=== PATIENT | female | born 1950 | race Caucasian/White ===

== ENCOUNTER → 2016-08-14 | Outpatient (CLI) | payer MEDICARE, BC ==
[~2016-08-14] MED LIST: HYDROCHLOROTH12.5 M1 PO; IBUPROFEN 200200 MG PO; LISINOPRIL10 MG PO; LOPRESSOR 225 MG/TAB PO; NAPROXEN CR500 MG PO; RITE AID ASPIRI81 M1 PO; ZOVIRAX400 MG PO; ZOVIRAX5% TP
[2016-08-14 11:09] VITALS: BP 157/74
== END ==
LOC: AMSURD 10:42
DX: I10 Essential (primary) hypertension (principal); R07.9 Chest pain, unspecified; Z79.899 Other long term (current) drug therapy

== ENCOUNTER → 2017-01-11 | Outpatient (CLI) | payer MEDICARE, BC ==
[2016-08-14 11:09] VITALS: BP 157/74
== END ==
LOC: RAD 10:01
DX: M79.671 Pain in right foot (principal); M19.071 Primary osteoarthritis, right ankle and foot; M77.31 Calcaneal spur, right foot

== ENCOUNTER → 2017-03-14 | Outpatient (CLI) | payer MEDICARE, BC ==
[2016-08-14 11:09] VITALS: BP 157/74
== END ==
LOC: LAB 11:21
DX: I10 Essential (primary) hypertension (principal); E11.9 Type 2 diabetes mellitus without complications; K90.89 Other intestinal malabsorption; I25.10 Atherosclerotic heart disease of native coronary artery without angina pectoris; Z12.11 Encounter for screening for malignant neoplasm of colon

== ENCOUNTER → 2018-04-01 | Outpatient (CLI) | payer MEDICARE, BC ==
[2016-08-14 11:09] VITALS: BP 157/74
[2018-04-01 10:27] LABS: HEMATOCRIT 43.2 % (37.0-47.0); HEMOGLOBIN 14.8 g/dL (12.5-16.0); MEAN CELL VOLUME 81 fl (78-100); MEAN CORPUSCULAR HEMOGLOBIN 28 pg (27-31); MEAN CORPUSCULAR HGB CONC 34 g/dL (33-37); MEAN PLATELET VOLUME 9.2 fl (7.4-10.4); RED BLOOD COUNT 5.33 M/mm3 (4.10-5.30); RED CELL DISTRIBUTION WIDTH 16.7 % (11.5-14.5); WHITE BLOOD COUNT 9.2 K/mm3 (4.8-10.8)
[2018-04-01 10:28] LABS: ALBUMIN 4.1 g/dL (3.5-5.0); CALCIUM 9.2 mg/dL (8.4-10.2); POTASSIUM 4.1 mmol/L (3.6-5.0); TOTAL BILIRUBIN 1.6 mg/dL (0.2-1.3); TOTAL PROTEIN 7.6 g/dL (6.3-8.2)
[2018-04-01 10:58] LABS: URINE APPEARANCE CLEAR; URINE BILIRUBIN NEGATIVE (NEGATIVE); URINE BLOOD NEGATIVE (NEGATIVE); URINE COLOR YELLOW; URINE GLUCOSE NEGATIVE (NEGATIVE); URINE KETONE NEGATIVE (NEGATIVE); URINE LEUKOCYTE ESTERASE TRACE (NEGATIVE); URINE NITRATE NEGATIVE (NEGATIVE); URINE PROTEIN(semi-quant) TRACE mg/dL (NEGATIVE); URINE UROBILINOGEN NORMAL (NORMAL)
[2018-04-01 11:34] LABS: BAND 1 % (0-10); LYMPHOCYTE 25 % (20-51); MONOCYTE 6 % (3-10); NEUTROPHILS 63 % (42-75); PLATELET COUNT 1051 K/mm3 (130-400)
[2018-04-01 11:35] LABS: ERYTHROCYTE SEDIMENTATION RATE 2 mm/hr (0-30)
== END ==
LOC: LAB 09:52
PROVIDERS: Internal Medicine
DX: E11.9 Type 2 diabetes mellitus without complications (principal); I25.10 Atherosclerotic heart disease of native coronary artery without angina pectoris; I10 Essential (primary) hypertension; K90.9 Intestinal malabsorption, unspecified

== ENCOUNTER → 2018-12-12 | Outpatient (CLI) | payer MEDICARE, BC ==
[2016-08-14 11:09] VITALS: BP 157/74
== END ==
LOC: LAB 08:08
PROVIDERS: Internal Medicine Cardiovascular Disease
DX: E78.00 Pure hypercholesterolemia, unspecified (principal)

== ENCOUNTER → 2019-04-06 | Outpatient (CLI) | payer MEDICARE, BC ==
[2016-08-14 11:09] VITALS: BP 157/74
== END ==
LOC: VAS 10:12
DX: Z13.89 Encounter for screening for other disorder (principal); M79.89 Other specified soft tissue disorders; I87.2 Venous insufficiency (chronic) (peripheral)

== ENCOUNTER → 2019-04-27 | Outpatient (CLI) | payer MEDICARE, BC ==
[2016-08-14 11:09] VITALS: BP 157/74
[2019-04-27 10:46] LABS: HEMATOCRIT 41.2 % (37.0-47.0); HEMOGLOBIN 13.8 g/dL (12.5-16.0); MEAN CELL VOLUME 81 fl (78-100); MEAN CORPUSCULAR HEMOGLOBIN 27 pg (27-31); MEAN CORPUSCULAR HGB CONC 34 g/dL (33-37); MEAN PLATELET VOLUME 8.8 fl (7.4-10.4); RED BLOOD COUNT 5.12 M/mm3 (4.10-5.30); WHITE BLOOD COUNT 9.3 K/mm3 (4.8-10.8)
[2019-04-27 10:55] LABS: ALBUMIN 4.1 g/dL (3.4-4.8); POTASSIUM 4.2 mmol/L (3.5-5.1)
[2019-04-27 10:56] LABS: CALCIUM 9.4 mg/dL (8.3-10.5)
[2019-04-27 10:58] LABS: TOTAL PROTEIN 7.6 g/dL (6.2-8.1)
[2019-04-27 10:59] LABS: TOTAL BILIRUBIN 1.4 mg/dL (0.2-1.2)
[2019-04-27 11:05] LABS: MAGNESIUM 2.04 mg/dL (1.60-2.60)
[2019-04-27 11:25] LABS: LYMPHOCYTE 27 % (20-51); MONOCYTE 6 % (3-10); NEUTROPHILS 59 % (42-75); PLATELET COUNT 1233 K/mm3 (130-400); RED CELL DISTRIBUTION WIDTH 18.9 % (11.5-14.5)
[2019-04-27 11:26] LABS: OVALOCYTES 1+
[2019-04-27 11:49] LABS: PH-URINE 5.5 (5.0 - 8.0); URINE APPEARANCE HAZY; URINE BILIRUBIN NEGATIVE (NEGATIVE); URINE BLOOD NEGATIVE (NEGATIVE); URINE COLOR YELLOW; URINE GLUCOSE NEGATIVE (NEGATIVE); URINE KETONE NEGATIVE (NEGATIVE); URINE LEUKOCYTE ESTERASE 1+ (NEGATIVE); URINE MUCUS PRESENT (NOT PRESENT); URINE NITRATE NEGATIVE (NEGATIVE); URINE PROTEIN(semi-quant) TRACE mg/dL (NEGATIVE); URINE UROBILINOGEN NORMAL (NORMAL)
[2019-04-27 12:03] LABS: ERYTHROCYTE SEDIMENTATION RATE 4 mm/hr (0-30)
== END ==
LOC: LAB 10:31
PROVIDERS: Internal Medicine
DX: M16.12 Unilateral primary osteoarthritis, left hip (principal); E11.9 Type 2 diabetes mellitus without complications; I10 Essential (primary) hypertension; I25.10 Atherosclerotic heart disease of native coronary artery without angina pectoris; K90.9 Intestinal malabsorption, unspecified

== ENCOUNTER 2019-09-25 14:59 | Emergency (ER) | payer MEDICARE, BC ==
[~2019-09-25] VITALS: Ht 167.6 cm; Wt 75.9 kg
[2019-09-25 16:27] LABS: HEMATOCRIT 37.4 % (37.0-47.0); HEMOGLOBIN 12.9 g/dL (12.5-16.0); MEAN CELL VOLUME 75 fl (78-100); MEAN CORPUSCULAR HEMOGLOBIN 26 pg (27-31); MEAN CORPUSCULAR HGB CONC 35 g/dL (33-37); MEAN PLATELET VOLUME 9.5 fl (7.4-10.4); RED BLOOD COUNT 4.98 M/mm3 (4.10-5.30); WHITE BLOOD COUNT 6.5 K/mm3 (4.8-10.8)
[2019-09-25] MEDS ORDERED: ZOFRAN4 M2 PO (16:29)
[2019-09-25] MEDS ORDERED: NITROGLYCERIN0.4 M1 SL (16:32)
[2019-09-25] MEDS ORDERED: METOPROLOL SUCC25 M1 PO (16:33)
[2019-09-25 16:47] LABS: ALBUMIN 3.5 g/dL (3.4-4.8)
[2019-09-25 16:50] LABS: TOTAL PROTEIN 6.2 g/dL (6.2-8.1)
[2019-09-25 16:52] LABS: TOTAL BILIRUBIN 1.4 mg/dL (0.2-1.2)
[2019-09-25 16:55] LABS: LYMPHOCYTE 16 % (20-51); MONOCYTE 6 % (3-10); NEUTROPHILS 78 % (42-75); PLATELET COUNT 705 K/mm3 (130-400); POLYCHROMASIA 1+; RED CELL DISTRIBUTION WIDTH 18.4 % (11.5-14.5)
[2019-09-25 16:56] LABS: MICROCYTOSIS 1+
[2019-09-25 17:04] LABS: POTASSIUM 2.5 mmol/L (3.5-5.1)
[2019-09-25 17:45] LABS: PH-URINE 5.5 (5.0 - 8.0); URINE APPEARANCE CLOUDY; URINE BILIRUBIN NEGATIVE (NEGATIVE); URINE BLOOD TRACE (NEGATIVE); URINE COLOR YELLOW; URINE GLUCOSE NEGATIVE (NEGATIVE); URINE KETONE NEGATIVE (NEGATIVE); URINE LEUKOCYTE ESTERASE 2+ (NEGATIVE); URINE NITRATE POSITIVE (NEGATIVE); URINE PROTEIN(semi-quant) TRACE mg/dL (NEGATIVE); URINE UROBILINOGEN NORMAL (NORMAL)
[2019-09-25 17:46] LABS: URINE WBC >50 /hpf (0-3)
[2019-09-25 19:02] VITALS: BP 161/75
== END 2019-09-25 20:28 | disposition short-term general hospital (02) ==
LOC: ED 14:59
PROVIDERS: Nurse Practitioner
DX: E87.6 Hypokalemia (principal); E87.1 Hypo-osmolality and hyponatremia; R05 Cough; R06.02 Shortness of breath; E11.9 Type 2 diabetes mellitus without complications; I10 Essential (primary) hypertension; E78.5 Hyperlipidemia, unspecified; F41.9 Anxiety disorder, unspecified; K21.9 Gastro-esophageal reflux disease without esophagitis; Z79.82 Long term (current) use of aspirin; Z90.49 Acquired absence of other specified parts of digestive tract; Z90.710 Acquired absence of both cervix and uterus
CPT/HCPCS: J2405; J7030

== ENCOUNTER → 2019-10-05 | Outpatient (CLI) | payer MEDICARE, BC ==
[2019-09-25 19:02] VITALS: BP 161/75
[~2019-10-05] MED LIST changes: +METOPROLOL SUCC25 M1 PO; +NITROGLYCERIN0.4 M1 SL; +ZOFRAN4 M2 PO
[2019-10-05 10:38] LABS: BASO # 0.1 (0.02-0.10); EOS # 0.4 (0.04-0.40); EOS % 4.4 % (1.0-5.0); HEMATOCRIT 38.4 % (37.0-47.0); HEMOGLOBIN 12.4 g/dL (12.5-16.0); LYMPH# 1.6 (1.50-4.00); MEAN CELL VOLUME 79 fl (78-100); MEAN CORPUSCULAR HEMOGLOBIN 26 pg (27-31); MEAN CORPUSCULAR HGB CONC 32 g/dL (33-37); MEAN PLATELET VOLUME 8.6 fl (7.4-10.4); MONO # 0.7 (0.20-0.80); NEU # 5.2 (1.40-6.50); RED BLOOD COUNT 4.86 M/mm3 (4.10-5.30)
[2019-10-05 10:57] LABS: PLATELET COUNT 1050 K/mm3 (130-400); RED CELL DISTRIBUTION WIDTH 19.3 % (11.5-14.5)
== END ==
LOC: LAB 08:51
PROVIDERS: Internal Medicine
DX: J90 Pleural effusion, not elsewhere classified (principal); I10 Essential (primary) hypertension; E11.9 Type 2 diabetes mellitus without complications; B97.21 SARS-associated coronavirus as the cause of diseases classified elsewhere

== ENCOUNTER → 2019-10-30 | Outpatient (CLI) | payer MEDICARE, BC ==
[2019-10-30 08:36] LABS: BASO # 0.1 (0.02-0.10); HEMATOCRIT 38.9 % (37.0-47.0); HEMOGLOBIN 12.5 g/dL (12.5-16.0); LYMPH# 2.1 (1.50-4.00); MEAN CELL VOLUME 81 fl (78-100); MEAN CORPUSCULAR HEMOGLOBIN 26 pg (27-31); MEAN CORPUSCULAR HGB CONC 32 g/dL (33-37); MEAN PLATELET VOLUME 8.9 fl (7.4-10.4); MONO # 0.7 (0.20-0.80); NEU # 4.5 (1.40-6.50); RED BLOOD COUNT 4.83 M/mm3 (4.10-5.30); WHITE BLOOD COUNT 8.1 K/mm3 (4.8-10.8)
[2019-10-30 08:38] LABS: EOS # 0.7 (0.04-0.40); PLATELET COUNT 1045 K/mm3 (130-400); RED CELL DISTRIBUTION WIDTH 20.3 % (11.5-14.5)
[2019-10-30 08:40] LABS: ALBUMIN 3.7 g/dL (3.4-4.8); POTASSIUM 3.9 mmol/L (3.5-5.1)
[2019-10-30 08:41] LABS: CALCIUM 8.8 mg/dL (8.3-10.5)
[2019-10-30 08:42] LABS: TOTAL PROTEIN 6.5 g/dL (6.2-8.1)
[2019-10-30 08:44] LABS: TOTAL BILIRUBIN 0.9 mg/dL (0.2-1.2)
== END ==
LOC: LAB 07:59
PROVIDERS: Internal Medicine
DX: E11.9 Type 2 diabetes mellitus without complications (principal)

== ENCOUNTER → 2019-11-03 | Outpatient (CLI) | payer MEDICARE, BC | LOC: LAB 13:30 | DX: D47.3 Essential (hemorrhagic) thrombocythemia (principal); K90.49 Malabsorption due to intolerance, not elsewhere classified ==

== ENCOUNTER → 2019-12-25 | Outpatient (CLI) | payer MEDICARE, BC ==
[2019-12-25 14:20] LABS: BASO # 0.1 (0.02-0.10); EOS # 0.4 (0.04-0.40); EOS % 5.8 % (1.0-5.0); HEMATOCRIT 35.4 % (37.0-47.0); HEMOGLOBIN 11.7 g/dL (12.5-16.0); LYMPH# 1.8 (1.50-4.00); MEAN CELL VOLUME 81 fl (78-100); MEAN CORPUSCULAR HEMOGLOBIN 27 pg (27-31); MEAN CORPUSCULAR HGB CONC 33 g/dL (33-37); MEAN PLATELET VOLUME 8.5 fl (7.4-10.4); MONO # 0.4 (0.20-0.80); NEU # 3.5 (1.40-6.50); RED BLOOD COUNT 4.36 M/mm3 (4.10-5.30); WHITE BLOOD COUNT 6.2 K/mm3 (4.8-10.8)
[2019-12-25 14:21] LABS: PLATELET COUNT 903 K/mm3 (130-400); RED CELL DISTRIBUTION WIDTH 19.6 % (11.5-14.5)
== END ==
LOC: LAB 14:09
PROVIDERS: Internal Medicine
DX: D47.3 Essential (hemorrhagic) thrombocythemia (principal)

== ENCOUNTER → 2020-01-07 | Outpatient (CLI) | payer MEDICARE, BC ==
[2020-01-07 10:46] LABS: BASO # 0.1 (0.02-0.10); EOS # 0.3 (0.04-0.40); EOS % 6.3 % (1.0-5.0); HEMOGLOBIN 12.6 g/dL (12.5-16.0); LYMPH# 1.5 (1.50-4.00); MEAN CELL VOLUME 83 fl (78-100); MEAN CORPUSCULAR HEMOGLOBIN 28 pg (27-31); MEAN CORPUSCULAR HGB CONC 33 g/dL (33-37); MEAN PLATELET VOLUME 8.7 fl (7.4-10.4); MONO # 0.2 (0.20-0.80); PLATELET COUNT 443 K/mm3 (130-400); RED BLOOD COUNT 4.57 M/mm3 (4.10-5.30)
[2020-01-07 10:56] LABS: POTASSIUM 4.3 mmol/L (3.5-5.1)
[2020-01-07 10:58] LABS: CALCIUM 9.1 mg/dL (8.3-10.5)
[2020-01-07 10:59] LABS: TOTAL PROTEIN 7.4 g/dL (6.2-8.1)
[2020-01-07 11:01] LABS: TOTAL BILIRUBIN 1.6 mg/dL (0.2-1.2)
== END ==
LOC: LAB 10:35
PROVIDERS: Internal Medicine
DX: D47.3 Essential (hemorrhagic) thrombocythemia (principal)

== ENCOUNTER → 2020-01-22 | Outpatient (CLI) | payer MEDICARE, BC ==
[2020-01-22 08:37] LABS: EOS # 0.2 (0.04-0.40); EOS % 6.5 % (1.0-5.0); HEMATOCRIT 38.5 % (37.0-47.0); LYMPH# 1.4 (1.50-4.00); MEAN CELL VOLUME 86 fl (78-100); MEAN CORPUSCULAR HEMOGLOBIN 29 pg (27-31); MEAN CORPUSCULAR HGB CONC 34 g/dL (33-37); MEAN PLATELET VOLUME 8.3 fl (7.4-10.4); MONO # 0.3 (0.20-0.80); NEU # 1.7 (1.40-6.50); PLATELET COUNT 294 K/mm3 (130-400); RED BLOOD COUNT 4.46 M/mm3 (4.10-5.30); WHITE BLOOD COUNT 3.7 K/mm3 (4.8-10.8)
[2020-01-22 08:40] LABS: RED CELL DISTRIBUTION WIDTH 25.5 % (11.5-14.5)
== END ==
LOC: LAB 08:18
PROVIDERS: Internal Medicine
DX: D47.3 Essential (hemorrhagic) thrombocythemia (principal)

== ENCOUNTER → 2020-02-15 | Outpatient (CLI) | payer MEDICARE, BC ==
[2020-02-15 12:47] LABS: ALBUMIN 4.3 g/dL (3.4-4.8); POTASSIUM 4.4 mmol/L (3.5-5.1)
[2020-02-15 12:48] LABS: CALCIUM 9.5 mg/dL (8.3-10.5)
[2020-02-15 12:49] LABS: TOTAL PROTEIN 7.4 g/dL (6.2-8.1)
[2020-02-15 12:51] LABS: TOTAL BILIRUBIN 1.9 mg/dL (0.2-1.2)
[2020-02-15 12:56] LABS: MAGNESIUM 1.9 mg/dL (1.60-2.60)
[2020-02-15 13:15] LABS: PH-URINE 5.5 (5.0 - 8.0); URINE APPEARANCE CLEAR; URINE BILIRUBIN NEGATIVE (NEGATIVE); URINE BLOOD NEGATIVE (NEGATIVE); URINE COLOR YELLOW; URINE GLUCOSE NEGATIVE (NEGATIVE); URINE KETONE NEGATIVE (NEGATIVE); URINE LEUKOCYTE ESTERASE NEGATIVE (NEGATIVE); URINE NITRATE NEGATIVE (NEGATIVE); URINE PROTEIN(semi-quant) NEGATIVE (NEGATIVE); URINE UROBILINOGEN NORMAL (NORMAL)
[2020-02-15 13:16] LABS: URINE MUCUS PRESENT (NOT PRESENT)
== END ==
LOC: LAB 12:13
PROVIDERS: Internal Medicine
DX: E11.9 Type 2 diabetes mellitus without complications (principal); I10 Essential (primary) hypertension; K90.49 Malabsorption due to intolerance, not elsewhere classified; I25.10 Atherosclerotic heart disease of native coronary artery without angina pectoris

== ENCOUNTER → 2020-02-19 | Outpatient (CLI) | payer MEDICARE, BC | LOC: LAB 08:56 | DX: E11.9 Type 2 diabetes mellitus without complications (principal); I25.10 Atherosclerotic heart disease of native coronary artery without angina pectoris; I10 Essential (primary) hypertension; K90.9 Intestinal malabsorption, unspecified ==

== ENCOUNTER → 2020-03-04 | Outpatient (CLI) | payer MEDICARE, BC ==
[2020-03-04 10:20] LABS: EOS # 0.2 (0.04-0.40); EOS % 3.3 % (1.0-5.0); HEMOGLOBIN 13.5 g/dL (12.5-16.0); LYMPH# 1.8 (1.50-4.00); MEAN CELL VOLUME 95 fl (78-100); MEAN CORPUSCULAR HEMOGLOBIN 32 pg (27-31); MEAN CORPUSCULAR HGB CONC 34 g/dL (33-37); MEAN PLATELET VOLUME 8.5 fl (7.4-10.4); MONO # 0.4 (0.20-0.80); NEU # 2.8 (1.40-6.50); RED BLOOD COUNT 4.21 M/mm3 (4.10-5.30); WHITE BLOOD COUNT 5.2 K/mm3 (4.8-10.8)
[2020-03-04 10:23] LABS: PLATELET COUNT 571 K/mm3 (130-400); RED CELL DISTRIBUTION WIDTH 22.2 % (11.5-14.5)
[2020-03-04 10:39] LABS: POTASSIUM 4.2 mmol/L (3.5-5.1)
[2020-03-04 10:40] LABS: CALCIUM 9.1 mg/dL (8.3-10.5)
[2020-03-04 10:41] LABS: TOTAL PROTEIN 6.9 g/dL (6.2-8.1)
[2020-03-04 10:43] LABS: TOTAL BILIRUBIN 1.5 mg/dL (0.2-1.2)
== END ==
LOC: LAB 10:10
PROVIDERS: Internal Medicine
DX: D47.3 Essential (hemorrhagic) thrombocythemia (principal)

== ENCOUNTER → 2020-03-31 | Outpatient (CLI) | payer MEDICARE, BC ==
[2020-03-31 10:08] LABS: EOS # 0.2 (0.04-0.40); EOS % 5.3 % (1.0-5.0); HEMATOCRIT 38.5 % (37.0-47.0); HEMOGLOBIN 13.3 g/dL (12.5-16.0); LYMPH# 1.6 (1.50-4.00); MEAN CELL VOLUME 99 fl (78-100); MEAN CORPUSCULAR HEMOGLOBIN 34 pg (27-31); MEAN CORPUSCULAR HGB CONC 35 g/dL (33-37); MEAN PLATELET VOLUME 8.6 fl (7.4-10.4); MONO # 0.3 (0.20-0.80); NEU # 2.4 (1.40-6.50); PLATELET COUNT 250 K/mm3 (130-400); RED BLOOD COUNT 3.91 M/mm3 (4.10-5.30); WHITE BLOOD COUNT 4.6 K/mm3 (4.8-10.8)
[2020-03-31 10:24] LABS: RED CELL DISTRIBUTION WIDTH 18.6 % (11.5-14.5)
== END ==
LOC: LAB 09:42
PROVIDERS: Internal Medicine
DX: D47.3 Essential (hemorrhagic) thrombocythemia (principal)

== ENCOUNTER → 2020-05-05 | Outpatient (CLI) | payer MEDICARE, BC ==
[2020-05-05 11:11] LABS: EOS # 0.1 (0.04-0.40); EOS % 2.7 % (1.0-5.0); HEMATOCRIT 38.1 % (37.0-47.0); HEMOGLOBIN 13.3 g/dL (12.5-16.0); LYMPH# 1.6 (1.50-4.00); MEAN CELL VOLUME 104 fl (78-100); MEAN CORPUSCULAR HGB CONC 35 g/dL (33-37); MEAN PLATELET VOLUME 8.6 fl (7.4-10.4); MONO # 0.5 (0.20-0.80); NEU # 1.8 (1.40-6.50); PLATELET COUNT 454 K/mm3 (130-400); RED BLOOD COUNT 3.65 M/mm3 (4.10-5.30); RED CELL DISTRIBUTION WIDTH 17.7 % (11.5-14.5)
[2020-05-05 11:41] LABS: MEAN CORPUSCULAR HEMOGLOBIN 36 pg (27-31)
[2020-05-05 11:50] LABS: CALCIUM 9.1 mg/dL (8.3-10.5)
[2020-05-05 11:51] LABS: TOTAL PROTEIN 7.3 g/dL (6.2-8.1)
[2020-05-05 11:53] LABS: TOTAL BILIRUBIN 2.3 mg/dL (0.2-1.2)
== END ==
LOC: LAB 10:55
PROVIDERS: Internal Medicine
DX: C94.6 Myelodysplastic disease, not elsewhere classified (principal)

== ENCOUNTER → 2020-05-31 | Outpatient (CLI) | payer MEDICARE, BC ==
[2020-05-31 14:59] LABS: EOS # 0.1 (0.04-0.40); EOS % 1.7 % (1.0-5.0); HEMOGLOBIN 13.1 g/dL (12.5-16.0); LYMPH# 1.6 (1.50-4.00); MEAN CELL VOLUME 105 fl (78-100); MEAN CORPUSCULAR HGB CONC 35 g/dL (33-37); MEAN PLATELET VOLUME 8.8 fl (7.4-10.4); MONO # 0.5 (0.20-0.80); NEU # 3.8 (1.40-6.50); PLATELET COUNT 256 K/mm3 (130-400); RED BLOOD COUNT 3.54 M/mm3 (4.10-5.30); RED CELL DISTRIBUTION WIDTH 15.5 % (11.5-14.5); WHITE BLOOD COUNT 5.9 K/mm3 (4.8-10.8)
[2020-05-31 15:01] LABS: MEAN CORPUSCULAR HEMOGLOBIN 37 pg (27-31)
[2020-05-31 15:09] LABS: ALBUMIN 3.9 g/dL (3.4-4.8); POTASSIUM 3.9 mmol/L (3.5-5.1)
[2020-05-31 15:10] LABS: CALCIUM 8.9 mg/dL (8.3-10.5)
[2020-05-31 15:12] LABS: TOTAL PROTEIN 6.7 g/dL (6.2-8.1)
[2020-05-31 15:13] LABS: TOTAL BILIRUBIN 3.5 mg/dL (0.2-1.2)
[2020-05-31 15:17] LABS: DIRECT BILIRUBIN 0.5 mg/dL (0.0-0.5)
== END ==
LOC: LAB 14:44
PROVIDERS: Internal Medicine
DX: D47.3 Essential (hemorrhagic) thrombocythemia (principal)

== ENCOUNTER → 2020-07-05 | Outpatient (CLI) | payer MEDICARE, BC ==
[2020-07-05 10:54] LABS: EOS # 0.1 (0.04-0.40); EOS % 2.7 % (1.0-5.0); HEMOGLOBIN 12.8 g/dL (12.5-16.0); LYMPH# 1.3 (1.50-4.00); MEAN CELL VOLUME 107 fl (78-100); MEAN CORPUSCULAR HGB CONC 37 g/dL (33-37); MEAN PLATELET VOLUME 8.6 fl (7.4-10.4); MONO # 0.4 (0.20-0.80); NEU # 1.6 (1.40-6.50); PLATELET COUNT 323 K/mm3 (130-400); RED BLOOD COUNT 3.27 M/mm3 (4.10-5.30); RED CELL DISTRIBUTION WIDTH 16.8 % (11.5-14.5); WHITE BLOOD COUNT 3.4 K/mm3 (4.8-10.8)
[2020-07-05 10:57] LABS: MEAN CORPUSCULAR HEMOGLOBIN 39 pg (27-31)
[2020-07-05 11:02] LABS: POTASSIUM 4.7 mmol/L (3.5-5.1)
[2020-07-05 11:05] LABS: TOTAL PROTEIN 6.9 g/dL (6.2-8.1)
[2020-07-05 11:06] LABS: TOTAL BILIRUBIN 2.9 mg/dL (0.2-1.2)
== END ==
LOC: LAB 10:38
PROVIDERS: Internal Medicine
DX: D47.3 Essential (hemorrhagic) thrombocythemia (principal)

== ENCOUNTER → 2020-08-05 | Outpatient (CLI) | payer MEDICARE, BC ==
[2020-08-05 13:21] LABS: EOS # 0.1 (0.04-0.40); HEMATOCRIT 32.5 % (37.0-47.0); HEMOGLOBIN 11.5 g/dL (12.5-16.0); LYMPH# 1.3 (1.50-4.00); MEAN CELL VOLUME 112 fl (78-100); MEAN CORPUSCULAR HGB CONC 35 g/dL (33-37); MONO # 0.3 (0.20-0.80); NEU # 1.6 (1.40-6.50); PLATELET COUNT 253 K/mm3 (130-400); RED CELL DISTRIBUTION WIDTH 17.2 % (11.5-14.5); WHITE BLOOD COUNT 3.3 K/mm3 (4.8-10.8)
[2020-08-05 13:22] LABS: MEAN CORPUSCULAR HEMOGLOBIN 40 pg (27-31)
[2020-08-05 13:34] LABS: ALBUMIN 3.8 g/dL (3.4-4.8); POTASSIUM 4.6 mmol/L (3.5-5.1)
[2020-08-05 13:35] LABS: CALCIUM 8.5 mg/dL (8.3-10.5)
[2020-08-05 13:37] LABS: TOTAL PROTEIN 6.6 g/dL (6.2-8.1)
== END ==
LOC: LAB 13:05
PROVIDERS: Internal Medicine
DX: D47.3 Essential (hemorrhagic) thrombocythemia (principal)

== ENCOUNTER → 2020-09-02 | Outpatient (CLI) | payer MEDICARE, BC ==
[2020-09-02 11:49] LABS: EOS # 0.1 (0.04-0.40); EOS % 1.6 % (1.0-5.0); HEMOGLOBIN 12.3 g/dL (12.5-16.0); LYMPH# 1.4 (1.50-4.00); MEAN CELL VOLUME 114 fl (78-100); MEAN CORPUSCULAR HGB CONC 36 g/dL (33-37); MEAN PLATELET VOLUME 9.7 fl (7.4-10.4); MONO # 0.4 (0.20-0.80); NEU # 2.5 (1.40-6.50); PLATELET COUNT 199 K/mm3 (130-400); RED BLOOD COUNT 2.98 M/mm3 (4.10-5.30); RED CELL DISTRIBUTION WIDTH 17.7 % (11.5-14.5); WHITE BLOOD COUNT 4.3 K/mm3 (4.8-10.8)
[2020-09-02 11:59] LABS: MEAN CORPUSCULAR HEMOGLOBIN 41 pg (27-31)
[2020-09-02 12:15] LABS: POTASSIUM 4.1 mmol/L (3.5-5.1)
[2020-09-02 12:16] LABS: CALCIUM 8.9 mg/dL (8.3-10.5)
[2020-09-02 12:19] LABS: TOTAL BILIRUBIN 4.6 mg/dL (0.2-1.2)
== END ==
LOC: LAB 11:37
PROVIDERS: Internal Medicine
DX: C94.6 Myelodysplastic disease, not elsewhere classified (principal); E11.9 Type 2 diabetes mellitus without complications; K90.9 Intestinal malabsorption, unspecified

== ENCOUNTER → 2020-09-08 | Outpatient (CLI) | payer MEDICARE, BC ==
[2020-09-08 07:55] LABS: ALBUMIN 3.9 g/dL (3.4-4.8)
[2020-09-08 07:58] LABS: TOTAL PROTEIN 6.9 g/dL (6.2-8.1)
[2020-09-08 08:00] LABS: TOTAL BILIRUBIN 2.9 mg/dL (0.2-1.2)
[2020-09-08 08:03] LABS: DIRECT BILIRUBIN 0.4 mg/dL (0.0-0.5)
[2020-09-08 09:12] LABS: EOS # 0.1 (0.04-0.40); EOS % 2.6 % (1.0-5.0); HEMATOCRIT 34.7 % (37.0-47.0); HEMOGLOBIN 12.2 g/dL (12.5-16.0); LYMPH# 1.6 (1.50-4.00); MEAN CELL VOLUME 115 fl (78-100); MEAN CORPUSCULAR HEMOGLOBIN 40 pg (27-31); MEAN CORPUSCULAR HGB CONC 35 g/dL (33-37); MEAN PLATELET VOLUME 9.3 fl (7.4-10.4); MONO # 0.3 (0.20-0.80); NEU # 1.4 (1.40-6.50); PLATELET COUNT 176 K/mm3 (130-400); RED BLOOD COUNT 3.03 M/mm3 (4.10-5.30); RED CELL DISTRIBUTION WIDTH 16.8 % (11.5-14.5); WHITE BLOOD COUNT 3.4 K/mm3 (4.8-10.8)
[2020-09-08 23:48] LABS: HAPTOGLOBIN <8 mg/dL (63-273)
== END ==
LOC: RAD 07:01
PROVIDERS: Internal Medicine
DX: D64.9 Anemia, unspecified (principal); R17 Unspecified jaundice; Z90.49 Acquired absence of other specified parts of digestive tract

== ENCOUNTER → 2020-10-06 | Outpatient (CLI) | payer MEDICARE, BC ==
[2020-10-06 12:12] LABS: ALBUMIN 3.8 g/dL (3.4-4.8); POTASSIUM 4.4 mmol/L (3.5-5.1)
[2020-10-06 12:13] LABS: CALCIUM 8.6 mg/dL (8.3-10.5)
[2020-10-06 12:14] LABS: TOTAL PROTEIN 6.7 g/dL (6.2-8.1)
[2020-10-06 12:16] LABS: TOTAL BILIRUBIN 2.4 mg/dL (0.2-1.2)
[2020-10-06 12:24] LABS: HEMATOCRIT 34.4 % (37.0-47.0); MEAN CELL VOLUME 118 fl (78-100); MEAN CORPUSCULAR HGB CONC 35 g/dL (33-37); MEAN PLATELET VOLUME 8.9 fl (7.4-10.4); PLATELET COUNT 303 K/mm3 (130-400); RED BLOOD COUNT 2.92 M/mm3 (4.10-5.30); RED CELL DISTRIBUTION WIDTH 16.3 % (11.5-14.5); WHITE BLOOD COUNT 2.6 K/mm3 (4.8-10.8)
[2020-10-06 12:32] LABS: MEAN CORPUSCULAR HEMOGLOBIN 41 pg (27-31)
[2020-10-06 23:45] LABS: HAPTOGLOBIN <8 mg/dL (63-273)
[2020-10-07 13:50] LABS: LYMPHOCYTE 36 % (20-51); MONOCYTE 8 % (3-10); NEUTROPHILS 52 % (42-75)
== END ==
LOC: LAB 11:21
PROVIDERS: Internal Medicine
DX: D47.3 Essential (hemorrhagic) thrombocythemia (principal)

== ENCOUNTER → 2020-11-11 | Outpatient (CLI) | payer MEDICARE, BC ==
[2020-11-11 10:17] LABS: BASO # 0.04 (0.02-0.10); EOS # 0.15 (0.04-0.40); EOS % 2.9 % (1.0-5.0); HEMATOCRIT 35.3 % (37.0-47.0); HEMOGLOBIN 13.2 g/dL (12.5-16.0); LYMPH# 1.62 (1.50-4.00); MEAN CELL VOLUME 107 fl (78-100); MEAN CORPUSCULAR HEMOGLOBIN 40 pg (27-31); MEAN CORPUSCULAR HGB CONC 37 g/dL (33-37); MEAN PLATELET VOLUME 9.4 fl (7.4-10.4); MONO # 0.46 (0.20-0.80); NEU # 2.88 (1.40-6.50); PLATELET COUNT 296 K/mm3 (130-400); RED BLOOD COUNT 3.31 M/mm3 (4.10-5.30); RED CELL DISTRIBUTION WIDTH 12.6 % (11.5-14.5); WHITE BLOOD COUNT 5.2 K/mm3 (4.8-10.8)
[2020-11-14 13:28] LABS: ALBUMIN 3.9 g/dL (3.4-4.8); POTASSIUM 4.4 mmol/L (3.5-5.1)
[2020-11-14 13:30] LABS: TOTAL PROTEIN 6.8 g/dL (6.2-8.1)
== END ==
LOC: LAB 09:54
PROVIDERS: Internal Medicine
DX: D47.3 Essential (hemorrhagic) thrombocythemia (principal)

== ENCOUNTER → 2020-11-17 | Outpatient (CLI) | payer MEDICARE, BC ==
[2020-11-17 12:51] LABS: BASO # 0.04 (0.02-0.10); EOS # 0.11 (0.04-0.40); EOS % 1.8 % (1.0-5.0); HEMATOCRIT 32.3 % (37.0-47.0); MEAN CELL VOLUME 107 fl (78-100); MEAN CORPUSCULAR HEMOGLOBIN 40 pg (27-31); MEAN CORPUSCULAR HGB CONC 37 g/dL (33-37); MEAN PLATELET VOLUME 9.2 fl (7.4-10.4); MONO # 0.48 (0.20-0.80); NEU # 3.54 (1.40-6.50); PLATELET COUNT 357 K/mm3 (130-400); RED BLOOD COUNT 3.03 M/mm3 (4.10-5.30); RED CELL DISTRIBUTION WIDTH 12.6 % (11.5-14.5)
[2020-11-17 12:55] LABS: ALBUMIN 3.7 g/dL (3.4-4.8); POTASSIUM 4.2 mmol/L (3.5-5.1)
[2020-11-17 12:56] LABS: CALCIUM 8.7 mg/dL (8.3-10.5)
[2020-11-17 12:58] LABS: TOTAL PROTEIN 6.4 g/dL (6.2-8.1)
[2020-11-17 12:59] LABS: TOTAL BILIRUBIN 2.5 mg/dL (0.2-1.2)
[2020-11-17 13:04] LABS: MAGNESIUM 1.66 mg/dL (1.60-2.60)
== END ==
LOC: LAB 12:27
PROVIDERS: Internal Medicine
DX: I10 Essential (primary) hypertension (principal)

== ENCOUNTER → 2020-12-13 | Outpatient (CLI) | payer MEDICARE, BC ==
[2020-12-13 11:38] LABS: URINE APPEARANCE CLOUDY; URINE BILIRUBIN NEGATIVE (NEGATIVE); URINE BLOOD 250 ery/uL (NEGATIVE); URINE COLOR BROWN; URINE GLUCOSE NEGATIVE (NEGATIVE); URINE KETONE NEGATIVE (NEGATIVE); URINE LEUKOCYTE ESTERASE 2+ (NEGATIVE); URINE NITRATE POSITIVE (NEGATIVE); URINE PROTEIN(semi-quant) 3+ mg/dL (NEGATIVE); URINE UROBILINOGEN NORMAL (NORMAL)
[2020-12-13 11:39] LABS: URINE WBC >50 /hpf (0-3)
== END ==
LOC: LAB 10:19
PROVIDERS: Internal Medicine
DX: D47.3 Essential (hemorrhagic) thrombocythemia (principal)

== ENCOUNTER → 2020-12-19 | Outpatient (CLI) | payer MEDICARE, BC ==
[2020-12-19 14:35] LABS: BASO # 0.03 (0.02-0.10); EOS # 0.08 (0.04-0.40); EOS % 1.8 % (1.0-5.0); HEMATOCRIT 38.8 % (37.0-47.0); HEMOGLOBIN 14.2 g/dL (12.5-16.0); LYMPH# 1.59 (1.50-4.00); MEAN CELL VOLUME 104 fl (78-100); MEAN CORPUSCULAR HEMOGLOBIN 38 pg (27-31); MEAN CORPUSCULAR HGB CONC 37 g/dL (33-37); MEAN PLATELET VOLUME 9.3 fl (7.4-10.4); MONO # 0.37 (0.20-0.80); NEU # 2.37 (1.40-6.50); PLATELET COUNT 383 K/mm3 (130-400); RED BLOOD COUNT 3.74 M/mm3 (4.10-5.30); RED CELL DISTRIBUTION WIDTH 12.4 % (11.5-14.5); WHITE BLOOD COUNT 4.5 K/mm3 (4.8-10.8)
[2020-12-19 16:35] LABS: ALBUMIN 3.9 g/dL (3.4-4.8); POTASSIUM 4.7 mmol/L (3.5-5.1)
[2020-12-19 16:36] LABS: CALCIUM 8.9 mg/dL (8.3-10.5)
[2020-12-19 16:38] LABS: TOTAL PROTEIN 6.9 g/dL (6.2-8.1)
[2020-12-19 16:39] LABS: TOTAL BILIRUBIN 1.7 mg/dL (0.2-1.2)
== END ==
LOC: LAB 14:21
PROVIDERS: Internal Medicine
DX: E78.2 Mixed hyperlipidemia (principal); D47.3 Essential (hemorrhagic) thrombocythemia

== ENCOUNTER → 2021-01-13 | Outpatient (CLI) | payer MEDICARE, BC ==
[2021-01-13 13:58] LABS: BASO # 0.04 (0.02-0.10); EOS # 0.15 (0.04-0.40); EOS % 2.7 % (1.0-5.0); HEMATOCRIT 39.1 % (37.0-47.0); HEMOGLOBIN 14.1 g/dL (12.5-16.0); MEAN CELL VOLUME 102 fl (78-100); MEAN CORPUSCULAR HEMOGLOBIN 37 pg (27-31); MEAN CORPUSCULAR HGB CONC 36 g/dL (33-37); MEAN PLATELET VOLUME 9.3 fl (7.4-10.4); NEU # 3.34 (1.40-6.50); PLATELET COUNT 486 K/mm3 (130-400); RED BLOOD COUNT 3.82 M/mm3 (4.10-5.30); RED CELL DISTRIBUTION WIDTH 13.4 % (11.5-14.5); WHITE BLOOD COUNT 5.5 K/mm3 (4.8-10.8)
[2021-01-13 14:14] LABS: ALBUMIN 3.9 g/dL (3.4-4.8); POTASSIUM 4.5 mmol/L (3.5-5.1)
[2021-01-13 14:15] LABS: CALCIUM 9.3 mg/dL (8.3-10.5)
[2021-01-13 14:16] LABS: TOTAL PROTEIN 7.1 g/dL (6.2-8.1)
[2021-01-13 14:18] LABS: TOTAL BILIRUBIN 2.1 mg/dL (0.2-1.2)
== END ==
LOC: LAB 13:43
PROVIDERS: Internal Medicine
DX: D47.3 Essential (hemorrhagic) thrombocythemia (principal)

== ENCOUNTER → 2021-04-13 | Outpatient (CLI) | payer MEDICARE, BC ==
[2021-04-13 15:08] LABS: BASO # 0.03 K/mm3 (0.02-0.10); EOS # 0.11 K/mm3 (0.04-0.40); HEMATOCRIT 39.2 % (37.0-47.0); HEMOGLOBIN 14.1 g/dL (12.5-16.0); LYMPH# 1.57 K/mm3 (1.50-4.00); MEAN CELL VOLUME 105 fl (78-100); MEAN CORPUSCULAR HEMOGLOBIN 38 pg (27-31); MEAN CORPUSCULAR HGB CONC 36 g/dL (33-37); NEU # 3.45 K/mm3 (1.40-6.50); PLATELET COUNT 316 K/mm3 (130-400); RED BLOOD COUNT 3.74 M/mm3 (4.10-5.30); RED CELL DISTRIBUTION WIDTH 14.9 % (11.5-14.5); WHITE BLOOD COUNT 5.6 K/mm3 (4.8-10.8)
[2021-04-13 15:20] LABS: ALBUMIN 3.9 g/dL (3.4-4.8); POTASSIUM 3.4 mmol/L (3.5-5.1)
[2021-04-13 15:21] LABS: CALCIUM 9.5 mg/dL (8.3-10.5)
[2021-04-13 15:22] LABS: TOTAL PROTEIN 6.5 g/dL (6.2-8.1)
[2021-04-13 15:24] LABS: TOTAL BILIRUBIN 2.7 mg/dL (0.2-1.2)
== END ==
LOC: LAB 14:54
PROVIDERS: Internal Medicine
DX: D47.3 Essential (hemorrhagic) thrombocythemia (principal); Z01.89 Encounter for other specified special examinations

== ENCOUNTER → 2021-04-24 | Outpatient (CLI) | payer MEDICARE, BC ==
[2021-04-24 12:12] LABS: MAGNESIUM 1.87 mg/dL (1.60-2.60)
[2021-04-24 12:17] LABS: URINE APPEARANCE CLEAR; URINE BILIRUBIN NEGATIVE (NEGATIVE); URINE BLOOD TRACE (NEGATIVE); URINE COLOR YELLOW; URINE GLUCOSE NEGATIVE (NEGATIVE); URINE KETONE NEGATIVE (NEGATIVE); URINE LEUKOCYTE ESTERASE 1+ (NEGATIVE); URINE NITRATE NEGATIVE (NEGATIVE); URINE PROTEIN(semi-quant) TRACE mg/dL (NEGATIVE); URINE UROBILINOGEN NORMAL (NORMAL)
== END ==
LOC: LAB 11:31
PROVIDERS: Internal Medicine
DX: Z12.11 Encounter for screening for malignant neoplasm of colon (principal); E78.2 Mixed hyperlipidemia; E11.9 Type 2 diabetes mellitus without complications; I10 Essential (primary) hypertension; K90.9 Intestinal malabsorption, unspecified; R78.2 Finding of cocaine in blood

== ENCOUNTER → 2021-09-05 | Outpatient (CLI) | payer MEDICARE, BC | LOC: RAD 16:18 | DX: M47.816 Spondylosis without myelopathy or radiculopathy, lumbar region (principal); S32.040A Wedge compression fracture of fourth lumbar vertebra, initial encounter for closed fracture ==

== ENCOUNTER → 2021-09-14 | Outpatient (CLI) | payer MEDICARE, BC | LOC: RAD 09-07 16:00 | DX: M48.56XA Collapsed vertebra, not elsewhere classified, lumbar region, initial encounter for fracture (principal); M51.36 Other intervertebral disc degeneration, lumbar region; M48.061 Spinal stenosis, lumbar region without neurogenic claudication; M51.26 Other intervertebral disc displacement, lumbar region ==

== ENCOUNTER → 2023-08-22 | Outpatient (CLI) | payer MEDICARE, BC ==
[2023-08-22 15:44] LABS: BASO # 0.02 K/mm3 (0.02-0.10); EOS # 0.04 K/mm3 (0.04-0.40); EOS % 0.8 % (1.0-5.0); HEMATOCRIT 23.7 % (37.0-47.0); HEMOGLOBIN 7.8 g/dL (12.5-16.0); LYMPH# 1.17 K/mm3 (1.50-4.00); MEAN CELL VOLUME 105 fl (78-100); MEAN CORPUSCULAR HEMOGLOBIN 35 pg (27-31); MEAN CORPUSCULAR HGB CONC 33 g/dL (33-37); MEAN PLATELET VOLUME 9.2 fl (7.4-10.4); MONO # 0.51 K/mm3 (0.20-0.80); NEU # 3.52 K/mm3 (1.40-6.50); PLATELET COUNT 512 K/mm3 (130-400); RED CELL DISTRIBUTION WIDTH 16.3 % (11.5-14.5); WHITE BLOOD COUNT 5.3 K/mm3 (4.8-10.8)
[2023-08-22 15:53] LABS: RED BLOOD COUNT 2.25 M/mm3 (4.10-5.30)
[2023-08-22 16:02] LABS: ALBUMIN 3.5 g/dL (3.4-4.8)
[2023-08-22 16:03] LABS: CALCIUM 8.6 mg/dL (8.3-10.5)
[2023-08-22 16:05] LABS: TOTAL PROTEIN 5.9 g/dL (6.2-8.1)
[2023-08-22 16:07] LABS: TOTAL BILIRUBIN 1.5 mg/dL (0.2-1.2)
[2023-08-22 17:01] LABS: URINE APPEARANCE CLOUDY (CLEAR); URINE BILIRUBIN NEGATIVE (NEGATIVE); URINE BLOOD TRACE (NEGATIVE); URINE COLOR DARK YELLOW (YELLOW); URINE GLUCOSE NEGATIVE (NEGATIVE); URINE KETONE NEGATIVE (NEGATIVE); URINE LEUKOCYTE ESTERASE 1+ (NEGATIVE); URINE NITRATE NEGATIVE (NEGATIVE); URINE PROTEIN(semi-quant) NEGATIVE (NEGATIVE); URINE WBC 16-30 /hpf (0-3)
[2023-08-23 17:17] LABS: HEPATITIS C VIRUS ANTIBODY Negative (Negative)
== END ==
LOC: LAB 15:14
PROVIDERS: Internal Medicine
DX: Z11.59 Encounter for screening for other viral diseases (principal); K90.9 Intestinal malabsorption, unspecified; E78.2 Mixed hyperlipidemia; D47.3 Essential (hemorrhagic) thrombocythemia; E11.9 Type 2 diabetes mellitus without complications

== ENCOUNTER → 2023-09-23 | Outpatient (CLI) | payer MEDICARE, BC ==
[2023-09-23 14:49] LABS: BASO # 0.02 K/mm3 (0.02-0.10); EOS # 0.05 K/mm3 (0.04-0.40); EOS % 0.9 % (1.0-5.0); HEMATOCRIT 39.5 % (37.0-47.0); LYMPH# 1.48 K/mm3 (1.50-4.00); MEAN CELL VOLUME 103 fl (78-100); MEAN CORPUSCULAR HEMOGLOBIN 31 pg (27-31); MEAN CORPUSCULAR HGB CONC 30 g/dL (33-37); MEAN PLATELET VOLUME 9.6 fl (7.4-10.4); MONO # 0.47 K/mm3 (0.20-0.80); NEU # 3.32 K/mm3 (1.40-6.50); PLATELET COUNT 716 K/mm3 (130-400); RED BLOOD COUNT 3.84 M/mm3 (4.10-5.30); RED CELL DISTRIBUTION WIDTH 18.6 % (11.5-14.5); WHITE BLOOD COUNT 5.4 K/mm3 (4.8-10.8)
[2023-09-23 15:00] LABS: ALBUMIN 3.8 g/dL (3.4-4.8)
[2023-09-23 15:02] LABS: CALCIUM 9.7 mg/dL (8.3-10.5)
[2023-09-23 15:03] LABS: TOTAL PROTEIN 6.7 g/dL (6.2-8.1)
[2023-09-23 15:05] LABS: TOTAL BILIRUBIN 1.1 mg/dL (0.2-1.2)
== END ==
LOC: LAB 14:23
PROVIDERS: Internal Medicine
DX: K92.0 Hematemesis (principal); K90.9 Intestinal malabsorption, unspecified; E11.9 Type 2 diabetes mellitus without complications

== ENCOUNTER → 2024-08-03 | Outpatient (CLI) | payer MEDICARE, BC | LOC: RAD 13:48 | DX: M47.814 Spondylosis without myelopathy or radiculopathy, thoracic region (principal); M48.56XA Collapsed vertebra, not elsewhere classified, lumbar region, initial encounter for fracture ==